=== PATIENT | female | born 1970 | race Caucasian/White ===

== ENCOUNTER 2017-01-02 12:47 | Emergency (ER) | payer MEDICAID ==
[2017-01-02 13:02] VITALS: BP 161/105
[2017-01-02] MEDS ORDERED: diphenhydrAMINE HCL 50 MG/ML VIAL IM ONE (13:24)
[2017-01-02] MEDS ORDERED: METOCLOPRAMIDE HCL 5 MG/ML VIAL IM ONE (13:24)
--- NOTE | 2017-01-02 13:26 | ERNOTE ---
Headache ER HPI - General Presenting Symptoms: "migraine" Time Seen by Provider: 01/02/17 13:15 Source: patient Exam Limitations: no limitations - Immun/Allergies/Home Medications Immunizations: IMMUNIZATION HX Immunizations Up to Date Yes History of Influenza Vaccine No Hx Pneumococcal Vaccination No Allergies/Adverse Reactions: Allergies ketorolac tromethamine [From Toradol] Allergy (Verified 01/02/17 12:59) Sulfa (Sulfonamide Antibiotics) Allergy (Verified 01/02/17 12:59) Home Medications: HOME MEDICATIONS lamoTRIgine [Lamictal] 200 mg PO DAILY 11/03/13 [Last Taken 06/10/15] Diazepam [Valium] 4 mg PO BID 05/01/15 [Last Taken 06/10/15] Clonidine HCl [Catapres] 0.2 mg PO BID #60 tablet 05/19/15 [Last Taken 06/10/15] Topiramate [Topamax] 100 mg PO DAILY 01/02/17 [Last Taken Unknown] Topiramate [Topamax] 200 mg PO HS 01/02/17 [Last Taken Unknown] - History of Present Illness Narrative: Patient started to have a headache this morning, it is on to of her head and is exactly like prior migraines she has had in the past, she always has double vision with her migraines as well, light sensitive, no nausea Date (Duration): 01/02/17 Time (Timing): 08:00 Timing of Headache: gradual Context Headache: Absent: recent head injury < 24 hrs ago Quality: Present: achy Severity Maximum: Present: severe Severity-Currently: Present: severe Headache frequency: Present: similar to previous headache Associated Symptoms: Denies: fever/chills, nausea, vomiting, nasal congestion Exacerbated by:: Reports: light Prior Treament: Reports: similar symptoms before Review of Systems - Review of Systems Constitutional: Absent: recent illness, fever EYE: Present: double vision ENT: Absent: nose congestion, sore throat Respiratory: Absent: shortness of breath Cardiology: Absent: chest pain Gastrointestinal/Abdominal: Absent: nausea, vomiting, abdominal pain Genitourinary: Present: no symptoms reported Musculoskeletal: Absent: neck pain Neurological: Present: See HPI, headache. Absent: dizziness/light-headedness, weakness, numbness - Patient's Past Medical History Patient History - Medical: Anxiety, Chronic Pain, Depression, Migraines Patient History - Cardiac/Respiratory: No pertinent hx Patient History - Cancer: No Hx of Cancer Patient History - Surgical Procedures: Hysterectomy, Tubal Ligation Patient History - Other: None - Family History Mother Family History - Medical: No pertinent hx Father Family History - Medical: No pertinent hx - Social History Abuse History: No History of abuse Psych History: No pertinent hx Smoking Status: Current every day smoker Have you smoked in the past 12 months: Yes - Immunizations Immunizations Up to Date: Yes Hx Pneumococcal Vaccination: No History of Influenza Vaccine: No Physical Exam - Physical Exam General Appearance: Present: wd/wn, alert, mild distress Head Exam: Present: normal inspection, no evidence of injury Eye Exam: Normal inspection: bilateral, PERRL: bilateral, EOMI: bilateral Ears, Nose, Throat: Present: normal ENT inspection, normal pharynx Neck: Present: normal inspection, nontender, supple Respiratory: Present: no respiratory distress, normal breath sounds, no accessory muscle use, lungs clear Cardiovascular/Chest: Present: regular rate, rhythm, no murmur Neurological Exam: Present: alert, oriented, normal mood/affect, no motor/ sensory deficits Skin Exam: Present: normal color, warm/dry ED Progress - Vital Signs Patient's Vital Signs:: I have reviewed the patient's vital signs. Vital Signs: Vital Signs 01/02/17 01/02/17 12:56 13:01 Temperature 36.9 C Pulse Rate 95 97 Respiratory 14 12 Rate Blood Pressure 161/105 O2 Sat by Pulse 99 97 Oximetry - Progress/Reassessment Chief Complaint: Headache Progress Note-Subjective: 01/02/17 14:19 no relieve after benadryl and reglan, asking for more pain medication 01/02/17 15:01 patient states that she did not get significant relieve with nubain, wants to go home and sleep it off Departure Clinical Impression: Migraine Qualifiers: Migraine type: unspecified Status migrainosus presence: without status migrainosus Intractability: not intractable Qualified Code(s): G43.909 - Migraine, unspecified, not intractable, without status migrainosus - Departure Disposition: Home self-care Condition: Good Instructions: Migraine Headache, [id number] Referrals: Sobeida Gore MD [Primary Care Provider] -
[2017-01-02] MEDS ORDERED: diphenhydrAMINE HCL 50 MG/ML VIAL ONE (13:49)
[2017-01-02] MEDS ORDERED: METOCLOPRAMIDE HCL 5 MG/ML VIAL ONE (13:49)
[2017-01-02] MEDS ORDERED: NALBUPHINE HCL 20 MG/ML AMPUL IM ONE (14:20)
[2017-01-02] MEDS ORDERED: NALBUPHINE HCL 20 MG/ML AMPUL ONE (14:23)
== END 2017-01-02 15:10 | disposition home or self-care (01) ==
LOC: ER 12:47
DX: G43.909 Migraine, unspecified, not intractable, without status migrainosus (principal); G89.29 Other chronic pain; F41.8 Other specified anxiety disorders; F17.200 Nicotine dependence, unspecified, uncomplicated